=== PATIENT | female | born 1995 | race Caucasian/White ===

== ENCOUNTER 2018-03-14 21:47 | Emergency (ER) | payer SELFPAY ==
[2018-03-14] MEDS ORDERED: NS 1,000 ML IV ONE (21:57)
--- NOTE | 2018-03-14 22:04 | EDPHY ---
H & P Stated Complaint: ETOH, unresponsive, Time Seen by Provider: 03/14/18 21:53 HPI/ROS: CHIEF COMPLAINT: Altered mental status HISTORY OF PRESENT ILLNESS: Patient is a 22-year-old female who is brought in by her boyfriend who states that he has been with her all day today. They had few drinks of alcohol about 8 hr ago. About an hour ago the patient went up to her room and about 15 min later the boyfriend wondered why she had not come back down. He went up to find her sitting on the couch confused and having difficulty walking. He brought her to the ER. Here she is snoring and minimally responsive. Boyfriend denies any drugs or alcohol more recent than 8 hr ago. No drug paraphernalia with her. No sign of self harm. He denies recent illness. He denies trauma. He denies past medical history. REVIEW OF SYSTEMS: Obtain from boyfriend Constitutional: See HPI denies: chills, fever, recent illness, recent injury EENTM: denies: blurred vision, double vision, nose congestion Respiratory: denies: cough, shortness of breath Cardiac: denies: chest pain, irregular heart rate, lightheadedness, palpitations Gastrointestinal/Abdominal: denies: abdominal pain, diarrhea, nausea, vomiting, blood streaked stools Genitourinary: denies: dysuria, frequency, hematuria, pain Musculoskeletal: denies: joint pain, muscle pain Skin: denies: lesions, rash, jaundice, bruising Neurological: See HPI denies recent: headache, numbness, paresthesia, tingling , dizziness, weakness Hematologic/Lymphatic: denies: blood clots, easy bleeding, easy bruising Immunologic/allergic: denies: HIV/AIDS, transplant Physical Exam General Appearance: WD/WN, no apparent distress, obtunded minimally arousable EENT: Pupils dilated in equal, dysconjugate gaze, reactive, dogs eyes., normal ENT inspection, TMs normal, pharynx normal Neck: non-tender, full range of motion, supple, normal inspection Respiratory: chest non-tender, lungs clear, normal breath sounds Cardiac/Chest: normal peripheral pulses, regular rate, rhythm, P Peripheral Pulses: 2+: carotid (R), carotid (L), femoral (R), femoral (L), dorsalis-pedis (R), dorsalis-pedis (L) Abdomen: normal bowel sounds, non-tender, soft Extremities: normal range of motion, non-tender, normal inspection, normal capillary refill Neurological: The minimally responsive to painful stimuli. Appearance: appropriate appearance, Behavior/Eye Contact/Speech: No speech Thoughts/Hallucinations: nonverbal Skin: normal color, warm/dry Source: Patient Exam Limitations: No limitations - Personal History LMP (Females 10-55): Unknown Current Tetanus Diphtheria and Acellular Pertussis (TDAP): Yes - Medical/Surgical History Hx Asthma: No Hx Chronic Respiratory Disease: No Hx Diabetes: No Hx Cardiac Disease: No Hx Renal Disease: No Hx Cirrhosis: No Hx Alcoholism: No Hx HIV/AIDS: No Hx Splenectomy or Spleen Trauma: No Other PMH: denies - Family History Significant Family History: No pertinent family hx - Social History Smoking Status: Never smoked Alcohol Use: Occasionally Drug Use: None Constitutional: Initial Vital Signs Temperature (C) 36.9 C 03/14/18 21:56 Heart Rate 113 H 03/14/18 21:56 Respiratory Rate 20 03/14/18 21:56 Blood Pressure 100/51 L 03/14/18 21:56 O2 Sat (%) 92 03/14/18 21:56 O2 Delivery Mode Room Air O2 (L/minute) 2 Allergies/Adverse Reactions: No Known Allergies Allergy (Unverified 03/14/18 21:56) Medical Decision Making - Diagnostics Imaging: Discussed imaging studies w/ call or contact centre team leader Radiologist ED Course/Re-evaluation: 10:20 p.m. I accompanied the patient to CT scanner. No obvious abnormality seen on head CT. She did vomit twice in the vomitus smells of alcohol. I spoke with the patient's mom on the phone Shirin Tripp [phone]. She has and he is to [place]. She states that this is likely alcohol. We will continue to observe and await lab results. 10:45 p.m. the patient alcohol is significantly elevated. This is reassuring. Other lab work is reassuring. We will continue to observe. Care transferred to Dr. Ramirez at shift change. Differential Diagnosis: Partial list of the Differential diagnosis considered include but were not limited to; alcohol intoxication, polysubstance abuse and although unlikely based on the history and physical exam, I also considered head injury, infection , assault. - Data Points Laboratory Results: Laboratory Results 03/14/18 22:00 03/14/18 22:00 03/14/18 22:00 Smear Review By Davis BAINS MD Medications Given: Discontinued Medications Sodium Chloride (Ns) 1,000 mls @ 0 mls/hr IV ONCE ONE; Wide Open PRN Reason: Protocol Stop: 03/14/18 21:58 Last Admin: 03/14/18 22:06 Dose: 1,000 mls Departure - Departure Disposition: Home, Routine, Self-Care Clinical Impression: Alcoholic intoxication Qualifiers: Complication of substance-induced condition: uncomplicated Qualified Code(s): F10.920 - Alcohol use, unspecified with intoxication, uncomplicated Condition: Fair Instructions: Alcohol Intoxication (ED) Referrals: NONE *PRIMARY CARE P,. [Primary Care Provider] - As per Instructions
[2018-03-14 22:18] LABS: PLATELET COUNT 375 10^3/uL (150-400)
[2018-03-14] MEDS ORDERED: ONDANSETRON 4 MG/2 ML VIAL ONE (22:23)
[2018-03-14 23:07] LABS: INR 0.95 (0.83-1.16); PROTIME(PATIENT) 12.9 SEC (12.0-15.0)
[2018-03-15 06:21] VITALS: BP 102/68
== END 2018-03-15 06:32 | disposition home or self-care (01) ==
DX: F10.920 Alcohol use, unspecified with intoxication, uncomplicated (principal); E86.9 Volume depletion, unspecified
CPT/HCPCS: 80305; G0480; J2405